=== PATIENT | female | born 1945 | race Caucasian/White ===

== ENCOUNTER 2017-04-08 09:00 | Day surgery (SDC) | payer OTHER, MEDICARE ==
[~2017-04-08] VITALS: Ht 170.2 cm; Wt 72.6 kg
[2017-04-08 09:57] VITALS: BP 160/76
[2017-04-08] MEDS ORDERED: HYDROCODON-ACE1 EAC7 PO (11:44)
[2017-04-08 12:25] VITALS: BP 171/82
[2017-04-08 13:01] VITALS: BP 167/79
== END 2017-04-08 13:30 | disposition home or self-care (01) ==
LOC: SDC 09:00
PROC: 0YU50JZ Supplement Right Inguinal Region with Synthetic Substitute, Open Approach (ICD-10-PCS; principal; 2017-04-08)
DX: K40.90 Unilateral inguinal hernia, without obstruction or gangrene, not specified as recurrent (principal); R03.0 Elevated blood-pressure reading, without diagnosis of hypertension; R73.9 Hyperglycemia, unspecified
CPT/HCPCS: C1781; J0690; J1100; J1170; J1885; J2405; S0020